=== PATIENT | female | born 1990 | race Hispanic/Latino ===

== ENCOUNTER 2016-11-05 10:46 | Inpatient (IN) | payer OTHER ==
[~2016-11-05 10:46] MED LIST: ATIVAN ONE
[2016-11-05] MEDS ORDERED: KEPPRA 1,000 MG/NS 0.75% 100ML 1,000 MG/100 ML BAG IV ONE (10:48)
[2016-11-05] MEDS ORDERED: NACL 0.9% 1000 ML 1,000 ML IV ONE (10:48)
[2016-11-05] MEDS ORDERED: ATIVAN IV ONE (10:48)
[2016-11-05] MEDS ORDERED: BENADRYL IV ONE (10:48)
--- NOTE | 2016-11-05 10:56 | Emergency Department Report ---
HPI - General Time Seen by Provider: 11/05/16 10:47 - HPI HPI: Room 20 The patient is a 26-year-old female presenting with a chief complaint of seizure. Patient reportedly has had seizures since July 2016 but has refused to go to the hospital for evaluation. The patient's mother states she had 4 seizures this morning. The patient was brought the hospital for seizure and had another generalized tonic-clonic seizure in the ED the patient is currently postictal. The mother states the patient complains of dizziness at times Location: Central Nervous system Duration: [see above] Quality: Generalized Tonic-clonic Severity: Severe Modifying factors: [see above] Context: [see above] Mode of transportation: [not driving] ED Past Medical Hx - Surgical History Past Surgical History?: No - Family History Family history: no significant - Social History Smoking Status: Former Smoker (none 2 years) Substance Use Type: Alcohol (occasionally), Marijuana - Medications Home Medications: Home Medications Medication Instructions Recorded Confirmed Last Taken Type No Known Home Medications [No 11/05/16 11/05/16 Unknown History Reported Home Medications] ED Review of Systems ROS: Stated complaint: SEIZURE Other details as noted in HPI Comment: Unobtainable due to pts medical conditions Physical Exam - Physical Exam Physical Exam: GENERAL: The patient is well-developed well-nourished female who is currently postictal. [] HEENT: Normocephalic. Atraumatic. Patient has moist mucous membranes. NECK: Supple. Trachea midline CHEST/LUNGS: Snoring respirations HEART/CARDIOVASCULAR: Regular. There is tachycardia. There is no gallop rub or murmur. ABDOMEN: Abdomen is soft, nontender. Patient has normal bowel sounds. There is no abdominal distention. SKIN: There is no rash. There is no diaphoresis. NEURO: The patient is post ictal and becoming combative MUSCULOSKELETAL: There is no evidence of acute injury. ED Course - Reevaluation(s) Reevaluation #1: 11/05/16 13:30 Patient resting comfortably still postictal. Heart rate normalized. Will admit ED Medical Decision Making - Lab Data Result diagrams: 11/05/16 10:59 11/05/16 10:59 Laboratory Tests 11/05/16 11/05/16 11/05/16 10:59 10:59 10:59 WBC 28.0 H RBC 4.41 Hgb 13.2 Hct 42.4 MCV 96 MCH 30 MCHC 31 RDW 14.4 Plt Count 247 Add Manual Diff Complete Total Counted 100 Seg Neuts % (Manual) 74.0 H Band Neutrophils % 0 Lymphocytes % (Manual) 17.0 Reactive Lymphs % (Man) 0 Monocytes % (Manual) 9.0 H Eosinophils % (Manual) 0 Basophils % (Manual) 0 Metamyelocytes % 0 Myelocytes % 0 Promyelocytes % 0 Blast Cells % 0 Nucleated RBC % Not Reportable Seg Neutrophils # Man 20.7 H Band Neutrophils # 0.0 Lymphocytes # (Manual) 4.8 Abs React Lymphs (Man) 0.0 Monocytes # (Manual) 2.5 H Eosinophils # (Manual) 0.0 Basophils # (Manual) 0.0 Metamyelocytes # 0.0 Myelocytes # 0.0 Promyelocytes # 0.0 Blast Cells # 0.0 WBC Morphology Not Reportable Hypersegmented Neuts Not Reportable Hyposegmented Neuts Not Reportable Hypogranular Neuts Not Reportable Smudge Cells Not Reportable Toxic Granulation Not Reportable Toxic Vacuolation Not Reportable Dohle Bodies Not Reportable Pelger-Huet Anomaly Not Reportable Dewayne Rods Not Reportable Platelet Estimate Appears normal Clumped Platelets Not Reportable Plt Clumps, EDTA Not Reportable Large Platelets Not Reportable Giant Platelets Not Reportable Platelet Satelliting Not Reportable Plt Morphology Comment Not Reportable RBC Morphology Not Reportable Dimorphic RBCs Not Reportable Polychromasia Few Hypochromasia Not Reportable Poikilocytosis Not Reportable Anisocytosis Not Reportable Microcytosis Not Reportable Macrocytosis Not Reportable Spherocytes Not Reportable Pappenheimer Bodies Not Reportable Sickle Cells Not Reportable Target Cells Not Reportable Tear Drop Cells Not Reportable Ovalocytes Not Reportable Stomatocytes Few Helmet Cells Not Reportable [place] Bodies Not Reportable [place] Rings Not Reportable Marlo Cells Not Reportable Bite Cells Not Reportable Crenated Cell Not Reportable Elliptocytes Not Reportable Acanthocytes (Spur) Not Reportable Rouleaux Not Reportable Hemoglobin C Crystals Not Reportable Schistocytes Not Reportable Malaria parasites Not Reportable John Bodies Not Reportable Hem Pathologist Commnt No PT 15.1 H INR 1.20 H APTT 25.6 Sodium 143 Potassium 4.1 Chloride 104.4 Carbon Dioxide 12 L Anion Gap 31 BUN 11 Creatinine 1.0 Estimated GFR > 60 BUN/Creatinine Ratio 11.00 Glucose 145 H Calcium 9.3 Magnesium Total Bilirubin < 0.20 AST 20 ALT 9 Alkaline Phosphatase 77 Total Creatine Kinase CK-MB (CK-2) CK-MB (CK-2) Rel Index Troponin T Total Protein 7.1 Albumin 4.8 Albumin/Globulin Ratio 2.1 TSH Free T4 Urine Color Urine Turbidity Urine pH Ur Specific [place] Urine Protein Urine Glucose (UA) Urine Ketones Urine Blood Urine Nitrite Urine Bilirubin Urine Urobilinogen Ur Leukocyte Esterase Urine WBC (Auto) Urine RBC (Auto) U Epithel Cells (Auto) Urine WBC Clumps Amorphous Crystals Urine Mucus Urine Yeast (Budding) Urine HCG, Qual Urine Opiates Screen Urine Methadone Screen Ur Barbiturates Screen Ur Phencyclidine Scrn Ur Amphetamines Screen U Benzodiazepines Scrn Urine Cocaine Screen U Marijuana (THC) Screen 11/05/16 11/05/16 11/05/16 10:59 10:59 11:05 WBC RBC Hgb Hct MCV MCH MCHC RDW Plt Count Add Manual Diff Total Counted Seg Neuts % (Manual) Band Neutrophils % Lymphocytes % (Manual) Reactive Lymphs % (Man) Monocytes % (Manual) Eosinophils % (Manual) Basophils % (Manual) Metamyelocytes % Myelocytes % Promyelocytes % Blast Cells % Nucleated RBC % Seg Neutrophils # Man Band Neutrophils # Lymphocytes # (Manual) Abs React Lymphs (Man) Monocytes # (Manual) Eosinophils # (Manual) Basophils # (Manual) Metamyelocytes # Myelocytes # Promyelocytes # Blast Cells # WBC Morphology Hypersegmented Neuts Hyposegmented Neuts Hypogranular Neuts Smudge Cells Toxic Granulation Toxic Vacuolation Dohle Bodies Pelger-Huet Anomaly Dewayne Rods Platelet Estimate Clumped Platelets Plt Clumps, EDTA Large Platelets Giant Platelets Platelet Satelliting Plt Morphology Comment RBC Morphology Dimorphic RBCs Polychromasia Hypochromasia Poikilocytosis Anisocytosis Microcytosis Macrocytosis Spherocytes Pappenheimer Bodies Sickle Cells Target Cells Tear Drop Cells Ovalocytes Stomatocytes Helmet Cells [place] Bodies [place] Rings Veyo Cells Bite Cells Crenated Cell Elliptocytes Acanthocytes (Spur) Rouleaux Hemoglobin C Crystals Schistocytes Malaria parasites John Bodies Hem Pathologist Commnt PT INR APTT Sodium Potassium Chloride Carbon Dioxide Anion Gap BUN Creatinine Estimated GFR BUN/Creatinine Ratio Glucose Calcium Magnesium 2.40 H Total Bilirubin AST ALT Alkaline Phosphatase Total Creatine Kinase 363 H CK-MB (CK-2) 10.2 H CK-MB (CK-2) Rel Index 2.8 Troponin T < 0.010 Total Protein Albumin Albumin/Globulin Ratio TSH 1.490 Free T4 1.06 Urine Color Straw Urine Turbidity Turbid Urine pH 5.0 Ur Specific [place] 1.013 Urine Protein 30 mg/dl Urine Glucose (UA) 50 Urine Ketones Neg Urine Blood Neg Urine Nitrite Neg Urine Bilirubin Neg Urine Urobilinogen < 2.0 Ur Leukocyte Esterase Neg Urine WBC (Auto) 10.0 H Urine RBC (Auto) 5.0 U Epithel Cells (Auto) 1.0 Urine WBC Clumps Not Reportable Amorphous Crystals 2+ Urine Mucus Few Urine Yeast (Budding) Not Reportable Urine HCG, Qual Negative Urine Opiates Screen Urine Methadone Screen Ur Barbiturates Screen Ur Phencyclidine Scrn Ur Amphetamines Screen U Benzodiazepines Scrn Urine Cocaine Screen U Marijuana (THC) Screen 11/05/16 11:05 WBC RBC Hgb Hct MCV MCH MCHC RDW Plt Count Add Manual Diff Total Counted Seg Neuts % (Manual) Band Neutrophils % Lymphocytes % (Manual) Reactive Lymphs % (Man) Monocytes % (Manual) Eosinophils % (Manual) Basophils % (Manual) Metamyelocytes % Myelocytes % Promyelocytes % Blast Cells % Nucleated RBC % Seg Neutrophils # Man Band Neutrophils # Lymphocytes # (Manual) Abs React Lymphs (Man) Monocytes # (Manual) Eosinophils # (Manual) Basophils # (Manual) Metamyelocytes # Myelocytes # Promyelocytes # Blast Cells # WBC Morphology Hypersegmented Neuts Hyposegmented Neuts Hypogranular Neuts Smudge Cells Toxic Granulation Toxic Vacuolation Dohle Bodies Pelger-Huet Anomaly Dewayne Rods Platelet Estimate Clumped Platelets Plt Clumps, EDTA Large Platelets Giant Platelets Platelet Satelliting Plt Morphology Comment RBC Morphology Dimorphic RBCs Polychromasia Hypochromasia Poikilocytosis Anisocytosis Microcytosis Macrocytosis Spherocytes Pappenheimer Bodies Sickle Cells Target Cells Tear Drop Cells Ovalocytes Stomatocytes Helmet Cells [place] Bodies [place] Rings Marlo Cells Bite Cells Crenated Cell Elliptocytes Acanthocytes (Spur) Rouleaux Hemoglobin C Crystals Schistocytes Malaria parasites John Bodies Hem Pathologist Commnt PT INR APTT Sodium Potassium Chloride Carbon Dioxide Anion Gap BUN Creatinine Estimated GFR BUN/Creatinine Ratio Glucose Calcium Magnesium Total Bilirubin AST ALT Alkaline Phosphatase Total Creatine Kinase CK-MB (CK-2) CK-MB (CK-2) Rel Index Troponin T Total Protein Albumin Albumin/Globulin Ratio TSH Free T4 Urine Color Urine Turbidity Urine pH Ur Specific [place] Urine Protein Urine Glucose (UA) Urine Ketones Urine Blood Urine Nitrite Urine Bilirubin Urine Urobilinogen Ur Leukocyte Esterase Urine WBC (Auto) Urine RBC (Auto) U Epithel Cells (Auto) Urine WBC Clumps Amorphous Crystals Urine Mucus Urine Yeast (Budding) Urine HCG, Qual Urine Opiates Screen Presumptive negative Urine Methadone Screen Presumptive negative Ur Barbiturates Screen Presumptive positive Ur Phencyclidine Scrn Presumptive negative Ur Amphetamines Screen Presumptive negative U Benzodiazepines Scrn Presumptive negative Urine Cocaine Screen Presumptive negative U Marijuana (THC) Screen Presumptive positive - EKG Data -: EKG Interpreted by Oh EKG shows normal: sinus rhythm Rate: tachycardia (126 bpm) - EKG Data When compared to previous EKG there are: previous EKG unavailable Interpretation: other (no ischemic changes seen) - Radiology Data Radiology results: report reviewed (CT head), image reviewed (CT head) CT head (read by radiologist)-no acute intracranial CT abnormality with mild increased sinus disease. - Differential Diagnosis epilepsy, ICH, electrolyte imbalance, substance abuse Critical care attestation.: If time is entered above; I have spent that time in minutes in the direct care of this critically ill patient, excluding procedure time. ED Disposition Clinical Impression: Seizures, Leukocytosis Disposition: OP ADMITTED IP TO THIS HOSP Is pt being admited?: Yes Does the pt Need Aspirin: Yes Condition: Fair Time of Disposition: 13:29 (hospitalist paged)
[2016-11-05 11:11] LABS: Hematocrit 42.4 % (30.3-42.9); Hemoglobin 13.2 gm/dl (10.1-14.3); Mean Corpuscular HGB Conc 31 % (30-34); Mean Corpuscular Hemoglobin 30 pg (28-32); Mean Corpuscular Volume 96 fl (79-97); Platelet Count 247 K/mm3 (140-440); Red Blood Count 4.41 M/mm3 (3.65-5.03); Red Cell Distribution Width 14.4 % (13.2-15.2)
[2016-11-05 11:20] LABS: INR 1.2 (0.87-1.13)
[2016-11-05 11:21] LABS: Partial Thromboplastin Time 25.6 Sec. (24.2-36.6)
[2016-11-05 11:35] LABS: Alanine Aminotransferase 9 units/L (7-56); Albumin 4.8 g/dL (3.9-5); Albumin/Globulin Ratio 2.1 %; Alkaline Phosphatase 77 units/L (35-129); Anion Gap 31 mmol/L; Bilirubin,Total < 0.20 mg/dL (0.1-1.2); Blood Urea Nitrogen 11 mg/dL (7-17); Calcium 9.3 mg/dL (8.4-10.2); Carbon Dioxide 12 mmol/L (22-30); Chloride 104.4 mmol/L (98-107); Glucose 145 mg/dL (65-100); Potassium 4.1 mmol/L (3.6-5.0); Sodium 143 mmol/L (137-145); Total Protein 7.1 g/dL (6.3-8.2)
[2016-11-05 11:53] LABS: Urine Drugs of Abuse Note Disclamer
[2016-11-05 12:00] LABS: Basophils % (Manual) 0 % (0.0-1.8); Blastocytes % (Manual) 0 %; Diff Status Complete; Eosinophils % (Manual) 0 % (0.0-4.3); Polychromasia Few; Stomatocytes Few
[2016-11-05 12:18] LABS: Bilirubin,Urine NEG (Negative); Blood,Urine NEG (Negative); Ketones,Urine NEG (Negative); Leukocyte Esterase,Urine NEG (Negative); Mucus,Urine FEW /HPF; Nitrite,Urine NEG (Negative); Urobilinogen,Urine < 2.0 mg/dL (<2.0)
[2016-11-05] MEDS ORDERED: ATIVAN IV PRN (12:28)
[2016-11-05] MEDS ORDERED: ZOFRAN ONE (12:35)
[2016-11-05 13:06] LABS: Creatine Kinase MB 10.2 ng/mL (0.0-4.0)
[2016-11-05 13:07] LABS: Creatine Kinase 363 units/L (30-135)
--- NOTE | 2016-11-05 13:11 | Cat Scan Report ---
CT HEAD WITHOUT CONTRAST INDICATION: Seizure. COMPARISON: 07/17/2011. FINDINGS: Noncontrast head CT demonstrates normal ventricles and sulci without acute or recent infarct, hemorrhage, mass effect or midline shift. No abnormal extra-axial fluid collections. Posterior fossa structures and basilar cisterns appear within normal limits. Symmetric eye globes. Mild to moderate right sphenoid sinusitis is new as also mild bilateral ethmoid sinusitis. Mild density in the left sphenoid sinus again noted, though now present more anteriorly. Additional slight left sphenoid sinus mucosal thickening may also now be seen. Frontal sinuses again somewhat hypoplastic. Clear remainder imaged paranasal sinuses and mastoid air cells. Intact calvarium. Normal overlying scalp soft tissues. Stable oral piercing ornament. CONCLUSION: No acute intracranial CT abnormality with mild increased sinus disease noted, as described. Thank you for the opportunity to participate in this patient's care.
--- NOTE | 2016-11-05 13:46 | Admit Criteria Form ---
Admission Criteria Documentation: SEIZURE Clinical Indications for Admission to Inpatient Care (Place 'X' for any and all applicable criteria): Admission is indicated for seizure and ANY ONE of the following(1)(2)(3)(4)(5): [x]I. Inpatient admission required rather than observation care (Also use Seizure: Observation Care Criteria as appropriate) because of ANY ONE of the following: [ ]a) Altered mental status that is severe or persistent [ ]b) New focal neurologic deficit that is severe or persistent [ ]c) Metabolic disorder (eg, hypoglycemia, hyponatremia) that is severe or persistent [x]d) Recurrent seizure [ ]e) Outpatient antiseizure regimen cannot be established (eg , patient cannot tolerate medication, initiation requires inpatient care) [ ]f) Need for ongoing intravenous infusion of antiseizure medication [ ]g) Cardiac arrhythmias of immediate concern [ ]h) Cerebral bleeding, hydrocephalus, or vasospasm monitoring (14) [ ]i) Increased intracranial pressure or cerebral edema monitoring (15) [ ]j) Other treatment or monitoring requiring inpatient admission [ ]II. Status epilepticus [A] or repetitive seizures not controlled with emergent treatment (6)(8) [ ]III. Brain disorder (eg, tumor, edema, and hydrocephalus) that requiring monitoring or intervention available only at inpatient level of care. [ ]IV. Brain insult (eg, severe trauma, stroke, drug toxicity, or withdrawal) that requires monitoring or intervention available only at inpatient level of care (10)(11) Extended stay beyond goal length of stay may be needed for (22) [ ]a) Complications of status epilepticus [ ]b) Refractory status epilepticus [ ]c) Etiology-specific therapy for conditions such as [employer] CONTROL SPECIALIST infection, head injury,eclampsia, severe metabolic abnormalities, and brain tumor [ ]d) Residual neurologic damage, [ ]e) Initiation of significant change to anticonvulsant treatment [ ]f) Older patients (65 years or older) [ ]g) Patient requiring intubation (eg, to protect airway) The original [employer] includes the [facility] content created by [employer] has been revised. The portions of the content which have been revised are identified through the use of italic text or in bold, and [employer] includes the [facility] [employer] has neither reviewed nor approved the modified material. All other unmodified content is copyright [facility] [employer]. Please see references footnoted in the original [facility] edition 2016 Admission Criteria Met: Yes
[2016-11-05] MEDS ORDERED: DULCOLAX PR PRN (15:03)
[2016-11-05] MEDS ORDERED: MILK OF MAGNESIA PO PRN (15:03)
[2016-11-05] MEDS ORDERED: ZOFRAN IV PRN (15:03)
[2016-11-05] MEDS ORDERED: TYLENOL PO PRN (15:03)
[2016-11-05] MEDS ORDERED: MORPHINE IV PRN (15:03)
[2016-11-05] MEDS: D5NS 1,000 ML IV SCH (16:53)
[2016-11-05] MEDS: PEPCID PO SCH ×2 (18:14→22:38)
[2016-11-05] MEDS: KEPPRA PO SCH (22:37)
--- NOTE | 2016-11-06 00:03 | Event Note ---
Date: 11/05/16 See H/p in reports Seizure Disorder
[2016-11-06] MEDS: D5NS 1,000 ML IV SCH (04:24)
[2016-11-06 04:58] LABS: Basophils % (Auto) 0.2 % (0.0-1.8); Hematocrit 37.7 % (30.3-42.9); Hemoglobin 12.4 gm/dl (10.1-14.3); Mean Corpuscular HGB Conc 33 % (30-34); Mean Corpuscular Hemoglobin 30 pg (28-32); Mean Corpuscular Volume 92 fl (79-97); Platelet Count 158 K/mm3 (140-440); Red Blood Count 4.12 M/mm3 (3.65-5.03); Red Cell Distribution Width 14.7 % (13.2-15.2); White Blood Count 12.9 K/mm3 (4.5-11.0)
[2016-11-06 05:09] LABS: Blood Urea Nitrogen 6 mg/dL (7-17); Calcium 8.5 mg/dL (8.4-10.2); Carbon Dioxide 19 mmol/L (22-30); Chloride 107.8 mmol/L (98-107); Glucose 98 mg/dL (65-100); Potassium 3.9 mmol/L (3.6-5.0); Sodium 140 mmol/L (137-145)
[2016-11-06 05:27] LABS: Anion Gap 17 mmol/L
--- NOTE | 2016-11-06 09:49 | History and Physical Report ---
CHIEF COMPLAINT: Seizures since 3 months. HISTORY OF PRESENT ILLNESS: A 26-year-old female who has been having seizures since July 2016 but refused to go to a physician for evaluation. As per mother, the patient had four seizures this morning. Generalized tonic-clonic seizures and the patient was postictal in the ER. The patient is lethargic. Not able to answer any questions. She had four seizures from morning. All are tonic-clonic generalized in description as per the mother. PAST MEDICAL HISTORY: Significant for seizure disorder for the last 3 months. FAMILY HISTORY: No significant family history. PAST SURGICAL HISTORY: None. SOCIAL HISTORY: Former smoker stopped about 3 years ago. Alcohol occasionally. Marijuana occasionally. FAMILY HISTORY: No significant family history. CURRENT MEDICATIONS: None. REVIEW OF SYSTEMS: Could not be done because of the patient's postictal state from the mom. The patient did not have any weight loss or weight gain. No fever. No chills. HEENT: No sore throat. No postnasal drip. CARDIOVASCULAR AND RESPIRATORY: No shortness of breath, no chest pain, no palpitations. GASTROINTESTINAL: No nausea, no vomiting, and no diarrhea. GENITOURINARY: No dysuria. DENTAL RECEPTIONIST: Seizures generalized for 4 times since morning. SKIN: No rashes. MUSCULOSKELETAL: No muscle pain etc. PHYSICAL EXAMINATION: GENERAL: Young female, lethargic, postictal, decreased responsiveness. VITAL SIGNS: Blood pressure 101/60, temperature is 99.2, pulse is 84, respirations 21, and sats are 95%. HEENT: Unremarkable. Pupils are equal and reactive. NECK: Supple, no lymphadenopathy, no thyromegaly. LUNGS: Clear to auscultation and percussion. Good air entry. CARDIOVASCULAR: S1, S2 heard. No gallop, no murmur, and no rub. Apical impulse in left fifth intercostal space and midclavicular line. ABDOMEN: Soft and benign. No hepatosplenomegaly. No guarding, no rigidity. Hernial orifices are normal. EXTREMITIES: Good pedal pulses. No pedal edema. CENTRAL NERVOUS SYSTEM: Altered sensorium, lethargic, responds to deep painful stimuli, but moves all four extremities. SKIN: Normal. LABORATORY DATA: Significant for white count of 28,000, H and H is 13.2 and 42.4, platelet count is 247,000. Urine shows 10 white cells. Drug screen is positive for marijuana and barbiturates. Electrolytes are normal. BUN and creatinine 11 and 1.0. CK is 363. CK-MB is 10.2. CT of the head no acute intracranial. EKG shows no ischemic changes. Sinus tachycardia 126. ASSESSMENT AND PLAN: 1. New onset seizure disorder. The patient started on IV Keppra to be transitioned to p.o. Keppra. Neurology consulted. IV fluids for the time being. 2. Urinary tract infection. Rocephin 2 grams IV q.24. 3. Leukocytosis, probably stress induced and secondary to seizures. We will check the white count again on 11/06/2016. 4. Deep vein thrombosis prophylaxis, Lovenox 40 mg subcutaneously daily. JOB# [id number] JONH/NTS
[2016-11-06] MEDS: ROCEPHIN/NS 1 GM/50 ML 1 GM/50 ML BAG IV SCH (10:12)
[2016-11-06] MEDS: PEPCID PO SCH ×2 (10:13→22:38)
[2016-11-06] MEDS: KEPPRA PO SCH ×2 (10:13→22:37)
--- NOTE | 2016-11-06 13:31 | History and Physical Report ---
History of Present Illness Date of examination: 11/06/16 Date of admission: 11/05/16 13:38 Chief complaint: seizure. History of present illness: 26 yeas old ambidextrous handed female with a past medical history of seizure, admitted for seizures. She has first seizure when she was 20 years old. She didn't take any seizure medicine. She has had seizures in July and August this year. She has had cluster seizures before admission. Her mother was with her at home. She has aura, felt jennifer Vu, then diaphoresis, then seizure. She has eyes rolled back, bitten tongue, incontinence. Then she was posictal for hours. Totally. she has 4 times seizures, all are pretty much same. Past History Past Medical History: other (Knees problems.) Past Surgical History: No surgical history Social history: no significant social history Medications and Allergies Allergies Allergy/AdvReac Type Severity Reaction Status Date / Time No Known Allergies Allergy Unverified 11/05/16 10:54 Home Medications Medication Instructions Recorded Confirmed Last Taken Type No Known Home Medications [No 11/05/16 11/05/16 Unknown History Reported Home Medications] Active Meds: Active Medications Acetaminophen (Tylenol) 650 mg PO Q4H PRN PRN Reason: Pain MILD(1-3)/Fever >100.5/ROWE Bisacodyl (Dulcolax) 10 mg OH QDAY PRN PRN Reason: Constipation unrelieved by MOM Famotidine (Pepcid) 20 mg PO BID [facility] Last Admin: 11/06/16 10:13 Dose: 20 mg Dextrose/Sodium Chloride (D5ns) 1,000 mls @ 100 mls/hr IV DIRECT [facility] Last Admin: 11/06/16 04:24 Dose: 100 mls/hr Ceftriaxone Sodium (Rocephin/Ns 1 Gm/50 Ml) 1 gm in 50 mls @ 100 mls/hr IV Q24HR KUMAR PRN Reason: Protocol Last Admin: 11/06/16 10:12 Dose: 100 mls/hr Levetiracetam (Keppra) 750 mg PO BID [facility] Last Admin: 11/06/16 10:13 Dose: 750 mg Lidocaine HCl (Lidocaine Viscous 2%) 15 ml PO Q8HR PRN PRN Reason: Mouth Pain Lorazepam (Ativan) 2 mg IV ONCE PRN PRN Reason: Agitation Magnesium Hydroxide (Milk Of Magnesia) 30 ml PO Q4H PRN PRN Reason: Constipation Morphine Sulfate (Morphine) 2 mg IV Q4H PRN PRN Reason: Pain, Moderate (4-6) Ondansetron HCl (Zofran) 4 mg IV Q8H PRN PRN Reason: N/V unrelieved by Reglan Review of Systems All systems: negative (All negative but tongue bitten both side.) Physical Examination - Vital Signs Vital Signs: Vital Signs Pulse Resp Pulse Ox 147 H 23 100 11/05/16 10:40 11/05/16 10:40 11/05/16 10:40 - Constitutional General appearance: comfortable - EENT EENT: Present: PERRL, TM abnormal - Respiratory Respiratory: Present: lungs clear, normal breath sounds, no respiratory distress - Cardiovascular Cardiovascular: Present: regular rate, normal S1, normal S2 Extremities: Present: no peripheral edema bilatateraly, no clubbing, cyanosis, no inflammation - Gastrointestinal Gastrointestinal: Present: soft, non-tender - Integumentary Integumentary: Present: normal - Neurologic Cranial nerve examination: PERRL, EOMI Speech examination: intact Sensorimotor examination: intact Detailed motor examination: grossly full strength in Motor examination - left side: 5/5: biceps, triceps, wrist flexion, wrist extension, ammunition assembly ii laborer, hip flexors, knee extensors, dorsiflexion, toe extension (EHL) , plantarflexion Detailed sensory examination: intact Reflexes: 2+: ankle, bicep, knee, tricep Cerebellar examination: other (Motional.) Results - Laboratory Findings CBC and BMP: 11/06/16 04:28 11/06/16 04:28 Abnormal Lab Findings: Abnormal Labs 11/06/16 11/06/16 04:28 04:28 WBC 12.9 H [place] # 0.9 H Seg Neutrophils % 75.9 H Seg Neutrophils # 9.8 H Chloride 107.8 H Carbon Dioxide 19 L D BUN 6 L Assessment and Plan 1. Seizures. Probably focal with conscious impairment and secondary generalized. 2. Leukocytosis. Suggestions. 1. Brain MRI with and without contrast. EEG. 2. Continue Keppra. Ativan PRN. 3. Don't drive a vehicle or operate heavy machinery for 6 months. Always seizure precaution. 4. Folic acid 2 mg daily. If , 2 mg bid. 5. Infection work up and continue antibiotics. 6. Plan discussed with her and her parents. 7. If D/C, F/U with neurology in 6-8 weeks.
[2016-11-06] MEDS ORDERED: LIDOCAINE VISCOUS 2% PO PRN (14:00)
--- NOTE | 2016-11-06 15:03 | Electroencephalogram Report ---
Electroencephalogram EEG Date of exam: 11/06/16 History: 26 years old, female, seizures, total 4 times and last one was cluster. Impression: Epilepsy Description: The waking background shows an appropriate organization with well-defined anterior posterior voltage and frequency gradients. Posteriorly, there is a well -developed alpha rhythm of 10 Hz which is symmetrical and bilaterally reactive. Anteriorly, there is a pattern of lower voltage and slightly irregular theta and beta range frequencies. During drowsiness, there is attenuation of the background rhythms. A few times, left temporal regions, sharp waves and focal slowing were seen. There was no sustained seizure noted. Interpretation: Abnormal EEG basis on focal slowing and sharp waves, which can see in focal cerebral dysfunction or focal seizures. Clinical correlation needed. If clinically indicated, may consider repeat EEG study even with video monitor or sleep deprived. I suggest her to continue seizure medicine and follow up with neurologist.
--- NOTE | 2016-11-06 18:59 | Magnetic Resonance Report ---
FINAL REPORT EXAM: MR BRAIN WO/W CON HISTORY: seizure TECHNIQUE: Multi sequence, Multiplanar MR imaging is acquired prior and subsequent to administration of gadolinium intravenous contrast. PRIORS: None. FINDINGS: There is no restricted diffusion, abnormal susceptibility or abnormal enhancement. The ventricles and cisterns and sulci are within normal limits. No midline shift or herniation. No intraparenchymal mass , mass effect or hemorrhage. Intracranial vasculature is within normal limits. [place] and white matter signal characteristics are also within normal limits. No volume loss or abnormal signal involving the parahippocampal gyri. Normal spherical shape of the globes. No abnormal signal within the paranasal sinuses or mastoid aircells. IMPRESSION: Normal MRI Brain.
--- NOTE | 2016-11-06 20:51 | Progress Note ---
Assessment and Plan Assessment and plan: --New onset seizures Continue seizure precautions, antiseizure medications, supportive care neurology evaluation noted and appreciated Follow neuro workup --Leukocytosis, rule out sepsis, probably urinary tract infection present on admission, Blood and urine cultures, empiric antibiotics --DVT prophylaxis with Lovenox Closely monitor the patient had just the management as needed, plan of care discussed with the patient, have patient's as well as the nurse Possible discharge in 1-2 days if stable History Interval history: Patient seen and evaluated medical records reviewed No new events reported by the nursing staff Patient was admitted with seizure episodes, no new seizures since admission Mild leukocytosis Hospitalist Physical - Constitutional Vitals: Temp Pulse Resp BP Pulse Ox 98.5 F 85 18 117/73 100 11/06/16 15:46 11/06/16 15:46 11/06/16 15:46 11/06/16 15:46 11/06/16 08:00 General appearance: Present: no acute distress, well-nourished - EENT Eyes: Present: PERRL, EOM intact - Neck Neck: Present: supple, normal ROM - Respiratory Respiratory effort: normal Respiratory: bilateral: diminished, negative: rales, rhonchi, wheezing - Cardiovascular Rhythm: regular Heart Sounds: Present: S1 & S2 - Extremities Extremities: no ischemia, pulses intact, pulses symmetrical Peripheral Pulses: within normal limits - Abdominal General gastrointestinal: soft, non-tender, non-distended, normal bowel sounds - Integumentary Integumentary: Present: clear, warm - Psychiatric Psychiatric: appropriate mood/affect, cooperative - Neurologic Neurologic: CNII-XII intact, moves all extremities Results - Labs CBC & Chem 7: 11/06/16 04:28 11/06/16 04:28 Labs: Laboratory Last Values WBC 12.9 K/mm3 (4.5-11.0) H 11/06/16 04:28 RBC 4.12 M/mm3 (3.65-5.03) 11/06/16 04:28 Hgb 12.4 gm/dl (10.1-14.3) 11/06/16 04:28 Hct 37.7 % (30.3-42.9) 11/06/16 04:28 MCV 92 fl (79-97) D 11/06/16 04:28 MCH 30 pg (28-32) 11/06/16 04:28 MCHC 33 % (30-34) 11/06/16 04:28 RDW 14.7 % (13.2-15.2) 11/06/16 04:28 Plt Count 158 K/mm3 (140-440) 11/06/16 04:28 Lymph % (Auto) 16.8 % (13.4-35.0) 11/06/16 04:28 [place] % (Auto) 7.1 % (0.0-7.3) 11/06/16 04:28 Eos % (Auto) 0.0 % (0.0-4.3) 11/06/16 04:28 Baso % (Auto) 0.2 % (0.0-1.8) 11/06/16 04:28 Lymph # 2.2 K/mm3 (1.2-5.4) 11/06/16 04:28 [place] # 0.9 K/mm3 (0.0-0.8) H 11/06/16 04:28 Eos # 0.0 K/mm3 (0.0-0.4) 11/06/16 04:28 Baso # 0.0 K/mm3 (0.0-0.1) 11/06/16 04:28 Add Manual Diff Complete 11/05/16 10:59 Total Counted 100 11/05/16 10:59 Seg Neutrophils % 75.9 % (40.0-70.0) H 11/06/16 04:28 Seg Neuts % (Manual) 74.0 % (40.0-70.0) H 11/05/16 10:59 Band Neutrophils % 0 % 11/05/16 10:59 Lymphocytes % (Manual) 17.0 % (13.4-35.0) 11/05/16 10:59 Reactive Lymphs % (Man) 0 % 11/05/16 10:59 Monocytes % (Manual) 9.0 % (0.0-7.3) H 11/05/16 10:59 Eosinophils % (Manual) 0 % (0.0-4.3) 11/05/16 10:59 Basophils % (Manual) 0 % (0.0-1.8) 11/05/16 10:59 Metamyelocytes % 0 % 11/05/16 10:59 Myelocytes % 0 % 11/05/16 10:59 Promyelocytes % 0 % 11/05/16 10:59 Blast Cells % 0 % 11/05/16 10:59 Nucleated RBC % Not Reportable 11/05/16 10:59 Seg Neutrophils # 9.8 K/mm3 (1.8-7.7) H 11/06/16 04:28 Seg Neutrophils # Man 20.7 K/mm3 (1.8-7.7) H 11/05/16 10:59 Band Neutrophils # 0.0 K/mm3 11/05/16 10:59 Lymphocytes # (Manual) 4.8 K/mm3 (1.2-5.4) 11/05/16 10:59 Abs React Lymphs (Man) 0.0 K/mm3 11/05/16 10:59 Monocytes # (Manual) 2.5 K/mm3 (0.0-0.8) H 11/05/16 10:59 Eosinophils # (Manual) 0.0 K/mm3 (0.0-0.4) 11/05/16 10:59 Basophils # (Manual) 0.0 K/mm3 (0.0-0.1) 11/05/16 10:59 Metamyelocytes # 0.0 K/mm3 11/05/16 10:59 Myelocytes # 0.0 K/mm3 11/05/16 10:59 Promyelocytes # 0.0 K/mm3 11/05/16 10:59 Blast Cells # 0.0 K/mm3 11/05/16 10:59 WBC Morphology Not Reportable 11/05/16 10:59 Hypersegmented Neuts Not Reportable 11/05/16 10:59 Hyposegmented Neuts Not Reportable 11/05/16 10:59 Hypogranular Neuts Not Reportable 11/05/16 10:59 Smudge Cells Not Reportable 11/05/16 10:59 Toxic Granulation Not Reportable 11/05/16 10:59 Toxic Vacuolation Not Reportable 11/05/16 10:59 Dohle Bodies Not Reportable 11/05/16 10:59 Pelger-Huet Anomaly Not Reportable 11/05/16 10:59 Dewayne Rods Not Reportable 11/05/16 10:59 Platelet Estimate Appears normal 11/05/16 10:59 Clumped Platelets Not Reportable 11/05/16 10:59 Plt Clumps, EDTA Not Reportable 11/05/16 10:59 Large Platelets Not Reportable 11/05/16 10:59 Giant Platelets Not Reportable 11/05/16 10:59 Platelet Satelliting Not Reportable 11/05/16 10:59 Plt Morphology Comment Not Reportable 11/05/16 10:59 RBC Morphology Not Reportable 11/05/16 10:59 Dimorphic RBCs Not Reportable 11/05/16 10:59 Polychromasia Few 11/05/16 10:59 Hypochromasia Not Reportable 11/05/16 10:59 Poikilocytosis Not Reportable 11/05/16 10:59 Anisocytosis Not Reportable 11/05/16 10:59 Microcytosis Not Reportable 11/05/16 10:59 Macrocytosis Not Reportable 11/05/16 10:59 Spherocytes Not Reportable 11/05/16 10:59 Pappenheimer Bodies Not Reportable 11/05/16 10:59 Sickle Cells Not Reportable 11/05/16 10:59 Target Cells Not Reportable 11/05/16 10:59 Tear Drop Cells Not Reportable 11/05/16 10:59 Ovalocytes Not Reportable 11/05/16 10:59 Stomatocytes Few 11/05/16 10:59 Helmet Cells Not Reportable 11/05/16 10:59 [place] Bodies Not Reportable 11/05/16 10:59 [place] Rings Not Reportable 11/05/16 10:59 Marlo Cells Not Reportable 11/05/16 10:59 Bite Cells Not Reportable 11/05/16 10:59 Crenated Cell Not Reportable 11/05/16 10:59 Elliptocytes Not Reportable 11/05/16 10:59 Acanthocytes (Spur) Not Reportable 11/05/16 10:59 Rouleaux Not Reportable 11/05/16 10:59 Hemoglobin C Crystals Not Reportable 11/05/16 10:59 Schistocytes Not Reportable 11/05/16 10:59 Malaria parasites Not Reportable 11/05/16 10:59 John Bodies Not Reportable 11/05/16 10:59 Hem Pathologist Commnt No 11/05/16 10:59 PT 15.1 Sec. (12.2-14.9) H 11/05/16 10:59 INR 1.20 (0.87-1.13) H 11/05/16 10:59 APTT 25.6 Sec. (24.2-36.6) 11/05/16 10:59 Sodium 140 mmol/L (137-145) 11/06/16 04:28 Potassium 3.9 mmol/L (3.6-5.0) 11/06/16 04:28 Chloride 107.8 mmol/L (98-107) H 11/06/16 04:28 Carbon Dioxide 19 mmol/L (22-30) L D 11/06/16 04:28 Anion Gap 17 mmol/L 11/06/16 04:28 BUN 6 mg/dL (7-17) L 11/06/16 04:28 Creatinine 0.8 mg/dL (0.7-1.2) 11/06/16 04:28 Estimated GFR > 60 ml/min 11/06/16 04:28 BUN/Creatinine Ratio 7.50 % 11/06/16 04:28 Glucose 98 mg/dL (65-100) 11/06/16 04:28 Calcium 8.5 mg/dL (8.4-10.2) 11/06/16 04:28 Magnesium 2.40 mg/dL (1.7-2.3) H 11/05/16 10:59 Total Bilirubin < 0.20 mg/dL (0.1-1.2) 11/05/16 10:59 AST 20 units/L (5-40) 11/05/16 10:59 ALT 9 units/L (7-56) 11/05/16 10:59 Alkaline Phosphatase 77 units/L (35-129) 11/05/16 10:59 Total Creatine Kinase 363 units/L (30-135) H 11/05/16 10:59 CK-MB (CK-2) 10.2 ng/mL (0.0-4.0) H 11/05/16 10:59 CK-MB (CK-2) Rel Index 2.8 (0-4) 11/05/16 10:59 Troponin T < 0.010 ng/mL (0.00-0.029) 11/05/16 10:59 Total Protein 7.1 g/dL (6.3-8.2) 11/05/16 10:59 Albumin 4.8 g/dL (3.9-5) 11/05/16 10:59 Albumin/Globulin Ratio 2.1 % 11/05/16 10:59 TSH 1.490 mlU/mL (0.270-4.200) 11/05/16 10:59 Free T4 1.06 ng/dL (0.76-1.46) 11/05/16 10:59 Urine Color Straw (Yellow) 11/05/16 11:05 Urine Turbidity Turbid (Clear) 11/05/16 11:05 Urine pH 5.0 (5.0-7.0) 11/05/16 11:05 Ur Specific [place] 1.013 (1.003-1.030) 11/05/16 11:05 Urine Protein 30 mg/dl mg/dL (Negative) 11/05/16 11:05 Urine Glucose (UA) 50 mg/dL (Negative) 11/05/16 11:05 Urine Ketones Neg mg/dL (Negative) 11/05/16 11:05 Urine Blood Neg (Negative) 11/05/16 11:05 Urine Nitrite Neg (Negative) 11/05/16 11:05 Urine Bilirubin Neg (Negative) 11/05/16 11:05 Urine Urobilinogen < 2.0 mg/dL (<2.0) 11/05/16 11:05 Ur Leukocyte Esterase Neg (Negative) 11/05/16 11:05 Urine WBC (Auto) 10.0 /HPF (0.0-6.0) H 11/05/16 11:05 Urine RBC (Auto) 5.0 /HPF (0.0-6.0) 11/05/16 11:05 U Epithel Cells (Auto) 1.0 /HPF (0-13.0) 11/05/16 11:05 Urine WBC Clumps Not Reportable 11/05/16 11:05 Amorphous Crystals 2+ 11/05/16 11:05 Urine Mucus Few /HPF 11/05/16 11:05 Urine Yeast (Budding) Not Reportable 11/05/16 11:05 Urine HCG, Qual Negative (Negative) 11/05/16 11:05 Urine Opiates Screen Presumptive negative 11/05/16 11:05 Urine Methadone Screen Presumptive negative 11/05/16 11:05 Ur Barbiturates Screen Presumptive positive 11/05/16 11:05 Ur Phencyclidine Scrn Presumptive negative 11/05/16 11:05 Ur Amphetamines Screen Presumptive negative 11/05/16 11:05 U Benzodiazepines Scrn Presumptive negative 11/05/16 11:05 Urine Cocaine Screen Presumptive negative 11/05/16 11:05 U Marijuana (THC) Screen Presumptive positive 11/05/16 11:05 Drugs of Abuse Note Disclamer 11/05/16 11:05
[2016-11-07] MEDS: D5NS 1,000 ML IV SCH (01:51)
[2016-11-07 07:22] LABS: Basophils % (Auto) 0.3 % (0.0-1.8); Eosinophils % (Auto) 0.7 % (0.0-4.3); Hemoglobin 12.1 gm/dl (10.1-14.3); Mean Corpuscular HGB Conc 34 % (30-34); Mean Corpuscular Hemoglobin 31 pg (28-32); Mean Corpuscular Volume 91 fl (79-97); Platelet Count 151 K/mm3 (140-440); Red Blood Count 3.95 M/mm3 (3.65-5.03); Red Cell Distribution Width 14.5 % (13.2-15.2); White Blood Count 6.6 K/mm3 (4.5-11.0)
[2016-11-07 07:29] LABS: Anion Gap 17 mmol/L; BUN/Creatinine Ratio 5.71; Blood Urea Nitrogen 4 mg/dL (7-17); Calcium 8.6 mg/dL (8.4-10.2); Carbon Dioxide 22 mmol/L (22-30); Glucose 97 mg/dL (65-100); Potassium 3.9 mmol/L (3.6-5.0); Sodium 144 mmol/L (137-145)
--- NOTE | 2016-11-07 09:44 | Discharge Summary ---
Providers - Providers Date of Admission: 11/05/16 13:38 Date of discharge: 11/07/16 Attending physician: BRIANA WILLAMS 11/05/16 13:51 Speech Therapy Evaluation and Treat [CONS] Routine Reason For Exam: failed bedside swallow 11/05/16 15:03 Consult to Physician [CONS] Routine Consulting Provider: LAURE ONEIL Reason For Exam: Seizure Place consult to:: Dionicio Notified:: Yes Comment:: consult changed to rounding neurologist Primary care physician: SHOE CLEANER Hospitalization Reason for admission: Seizure Condition: Fair Pertinent studies: CT head without contrast; no acute intracranial abnormality noted mild increased sinus disease MRI of the brain; no acute abnormality noted EEG; abnormal EEG focal slowing and sharp waves which can be seen in focal cerebral dysfunction or focal seizures advised continue seizure medications and follow up with neurologist Hospital course: 26-year-old female patient with significant past medical history of intermittent seizures for the last 3 months not on any medications did not see any physician was admitted through emergency room with seizures 2 generalized tonic-clonic patient was postictal in the emergency room Admitted to the hospital symptomatically managed placed on seizure precautions Evaluated by neurologist, started on antiseizure medications Had neuro workup with CT head without contrast, MRA of the brain, EEG the findings of which are as mentioned above Patient also had leukocytosis, started on empiric antibiotics to rule out possible urinary tract infection Patient did not have any new episodes of seizures since admission Leukocytosis completely resolved Cultures are negative to date Today she is comfortable in bed alert awake oriented 3 not in acute distress vital signs are stable [id number] evaluation physical examination done by me prior to discharge is unremarkable as detailed below Hemodynamically and clinically stable for discharge and does not need any further acute inpatient care at this time Patient also has history of marijuana use counseling done patient strongly advised to quit marijuana verbalized understanding Patient and patient's is at the bedside, advised strongly not to drive motor vehicle or operate heavy machinery for 6 months or until cleared by primary care physician or neurologist And advised to continue seizure precautions, patient and her verbalized understanding Final diagnosis; Seizure disorder new onset Leukocytosis Possible urinary tract infection Recreational drug use Medical none complains Disposition: DISCHARGED TO HOME OR SELFCARE Time spent for discharge: 32 min Core Measure Documentation - Palliative Care Palliative Care/ Comfort Measures: Not Applicable - Core Measures Any of the following diagnoses?: none Exam - Constitutional Vitals: Temp Pulse Resp BP Pulse Ox 97.0 F L 72 18 117/82 98 11/07/16 07:00 11/07/16 07:00 11/07/16 07:00 11/07/16 07:00 11/07/16 00:00 General appearance: Present: no acute distress, well-nourished - EENT Eyes: Present: PERRL, EOM intact - Neck Neck: Present: supple, normal ROM - Respiratory Respiratory effort: normal Respiratory: negative: rales, rhonchi, wheezing - Cardiovascular Rhythm: regular Heart Sounds: Present: S1 & S2 - Extremities Extremities: no ischemia, pulses intact, pulses symmetrical Peripheral Pulses: within normal limits - Abdominal General gastrointestinal: Present: soft, non-tender, non-distended, normal bowel sounds - Integumentary Integumentary: Present: clear, warm - Musculoskeletal Musculoskeletal: strength equal bilaterally - Psychiatric Psychiatric: appropriate mood/affect, cooperative - Neurologic Neurologic: CNII-XII intact, moves all extremities Plan Activity: no driving until cleared by PCP (secondary to seizures), other ( seizure precautions) Special Instructions: other (advised to quit. Marijuana drug use) Additional Instructions: Do not drive or operate heavy machinery until 6 months [or until cleared by primary care physician/neurology]. Advised to follow seizure precautions. Strongly advised to comply with medications and doctors visit. I also discussed the above instructions with the at the bedside. Both of them verbalized understanding Follow up with: PRIMARY CAREMD [Primary Care Provider] - 3-5 Days ARELIS BAÑUELOS MD [Staff Physician] - 7 Days Prescriptions: Folic Acid [Folvite] 1 mg PO QDAY #30 tablet levETIRAcetam [Keppra TAB] 750 mg PO BID #60 tablet Sulfamethoxazole/Trimethoprim [Bactrim DS TAB] 1 each PO BID #10 tablet
[2016-11-07] MEDS ORDERED: FOLVITE PO SCH (10:00)
[2016-11-07] MEDS: ROCEPHIN/NS 1 GM/50 ML 1 GM/50 ML BAG IV SCH (10:58)
[2016-11-07] MEDS: KEPPRA PO SCH (10:59)
[2016-11-07] MEDS: PEPCID PO SCH (10:59)
--- NOTE | 2016-11-07 11:58 | Progress Note ---
Assessment and Plan 1. Seizures. Probably focal with conscious impairment and secondary generalized. 2. Leukocytosis. She received antibiotics. 3. Continue Keppra. Ativan PRN. 4. Don't drive a vehicle or operate heavy machinery for 6 months. Always seizure precaution. 5. Folic acid 2 mg daily. If , 2 mg bid. 6. Plan discussed with her and her boy friend. 7. If D/C, F/U with neurology in 6-8 weeks. Subjective Date of service: 11/07/16 Principal diagnosis: Epilepsy. Interval history: No more spells. No new neurological complaints. Brain MRI with/without normal. EEG, left temporal frontal focal slowing and sharp waves. Objective - Vital Sign Vital Signs - 12hr 11/07/16 11/07/16 00:00 07:00 Temperature 98.8 F 97.0 F L Pulse Rate [ 72 Left Radial] Pulse Rate [ 58 L Left] Respiratory 18 18 Rate Blood Pressure 136/77 117/82 [Left Arm] O2 Sat by Pulse 98 Oximetry - General Apperance Constitutional: comfortable - EENT EENT: PERRL - Respiratory Respiratory: lungs clear, normal breath sounds - Cardiovascular Cardiovascular: regular rate, normal S1, normal S2 - Gastrointestinal Gastrointestinal: soft, non-tender - Integumentary Integumentary: normal - Neurologic Cranial nerve examination: PERRL, EOMI Speech examination: intact Motor examination - right side: 5/5: biceps, triceps, wrist flexion, wrist extension, manager psychology, hip flexors, knee extensors, dorsiflexion, toe extension (EHL) , plantarflexion Motor examination - left side: 5/5: biceps, triceps, wrist flexion, wrist extension, manager psychology, hip flexors, knee extensors, dorsiflexion, toe extension (EHL) , plantarflexion Detailed sensory examination: intact Reflex and gait examination: intact Reflexes: 2+: ankle, bicep, knee, tricep - Laboratory Findings CBC and BMP: 11/07/16 06:06 11/07/16 06:06 Abnormal Lab Findings: Abnormal Labs 11/06/16 11/06/16 11/07/16 04:28 04:28 06:06 WBC 12.9 H [place] % (Auto) 8.5 H Porter # 0.9 H Seg Neutrophils % 75.9 H Seg Neutrophils # 9.8 H Chloride 107.8 H Carbon Dioxide 19 L D BUN 6 L 11/07/16 06:06 WBC [place] % (Auto) Porter # Seg Neutrophils % Seg Neutrophils # Chloride 109.0 H Carbon Dioxide BUN 4 L
[2016-11-07 14:38] VITALS: BP 123/85
== END 2016-11-07 16:06 | disposition home or self-care (01) | DRG 101 ==
LOC: ED 10:46 → 3A 13:38
PROVIDERS: ADMIT Internal Medicine; ATTEND Internal Medicine
DX: G40.909 Epilepsy, unspecified, not intractable, without status epilepticus (principal); N39.0 Urinary tract infection, site not specified; D72.829 Elevated white blood cell count, unspecified; Z87.891 Personal history of nicotine dependence; Z72.89 Other problems related to lifestyle; F12.90 Cannabis use, unspecified, uncomplicated
CPT/HCPCS: 36415; 70450; 70553; 80048; 80053; 80307; 81001; 81025; 82550; 82553; 83735; 84439; 84443; 84484; 85007; 85025; 85610; 85730; 87040; 87086; 93005; 93010; 95819; 96374; 96375; A9577; J0696; J1200; J1953; J2060; J2405; J7030; J7042

== ENCOUNTER 2021-12-21 10:02 | Day surgery (SDC) | payer MEDICAID, SELFPAY ==
[~2021-12-21 10:02] MED LIST changes: -ATIVAN ONE; +SODIUM CHLORIDE 0.9% 1000 ML 1,000 ML IV SCH
--- NOTE | 2021-12-21 10:46 | Anesthesia Day of Surgery ---
Anesthesia Day of Surgery - Day of Surgery Patient Examined: Yes Patient H&P Reviewed: Yes Patient is NPO: Yes
--- NOTE | 2021-12-21 10:47 | Anesthesia Consultation ---
Anesthesia Consult and Med Hx Date of service: 12/21/21 - Airway Anesthetic Teeth Evaluation: Good ROM Head & Neck: Adequate Mental/Hyoid Distance: Adequate Mallampati Class: Class II - Pulmonary Exam CTA: Yes - Cardiac Exam Cardiac Exam: RRR - Pre-Operative Health Status ASA Pre-Surgery Classification: ASA2 Proposed Anesthetic Plan: MAC - Pulmonary Hx Asthma: No COPD: No Hx Pneumonia: No - Central Nervous System Hx Seizures: Yes - Endocrine Hx End Stage Renal Disease: No - Other Systems Hx Cancer: No
[2021-12-21] MEDS ORDERED: LIDOCAINE MPF (2%) 20 MG/1 ML VIAL 5 ML ONE (12:19)
[2021-12-21] MEDS ORDERED: propofoL 200 MG/20 ML VIAL IV ONE ×3 (12:19→12:32)
--- NOTE | 2021-12-21 12:52 | Procedure Note ---
Date of procedure: 12/21/21 Pre-op diagnosis: Hematochezia and Rectlal Pain Post-op diagnosis: other (Mild to Moderate Internal Hemorrhoids ( not significant enough for banding)/ Mild Proctitis/ Two, small rectal Polyps (possibly Hyperplastic)/ R/O Microscopic Colitis/R/O Ileitis) Procedure: Colonoscopy with Biopsy Anesthesia: NARCISO Surgeon: JUAN REY Estimated blood loss: minimal Pathology: list Specimen disposition: to lab Condition: stable Disposition: same day (Treat with Rowasa Enema, Lidocaine Gel,and Anusol HC Suppository; avoid aspirin and NSAID for 5days, otherwise resume previous medication and F/I in 1 to 2 weeks ([phone]).)
--- NOTE | 2021-12-21 12:58 | Post Anesthesia Evaluation ---
- Post Anesthesia Evaluation Patient Participated: Yes Airway Patent: Yes Stable Respiratory Function: Yes Nausea/Vomiting: No Temp > 96.8F: Yes Pain Manageable: Yes Adequeate Hydration: Yes Anesthesia Complications: No
--- NOTE | 2021-12-21 12:59 | Operative Report ---
DATE OF SURGERY: 12/21/2021 PROCEDURE PERFORMED: Colonoscopy with biopsy. INDICATIONS: A 41-year-old white female who has given childbirth about 15 months back. She has an underlying history of seizure disorder. Lately, has been having some rectal pain and some occasional hematochezia. Colonoscopy was done to assess for any significant lower GI pathology. DESCRIPTION OF PROCEDURE: Procedure was done after getting informed consent with MAC anesthesia. Initial rectal examination was unremarkable. The instrument was passed through the rectum onto the cecum, which was identified with ileocecal valve and appendiceal orifice. Visualization was fair to good. The terminal ileum was intubated, showed normal mucosa. Biopsy was done to rule out for possible ileitis. Cecum, ascending colon, transverse colon, descending colon and sigmoid showed normal mucosa. There was no evidence of any polyps, colitis or diverticular disease. Random biopsies were done to rule out for possible microscopic colitis. The rectum showed some proctitis, which may have been the cause of the patient's pain. Biopsy and photodocumentation was obtained. There were 2 small polyps, possibly hyperplastic in the rectum that were removed by cold biopsy and the rectum also showed some [id number] internal hemorrhoid. ASSESSMENT: Rectal pain secondary to proctitis, mild to moderate internal hemorrhoids, rectal polyps, possibly hyperplastic. No diverticular disease noted. Rule out microscopic colitis, rule out ileitis. PLAN: To treat the patient with Rowasa enemas, Anusol-HC suppositories, lidocaine gel. Have the patient avoid aspirin and aspirin-related products for the next few days and follow up in the office in 1-2 weeks' time. Procedure was done in the GI lab with assistance of the GI lab team, which included the GI nurse, the sound technician supervisor and with assistance of anesthesia. TID: [id number] RECEIPT: [id number] SANTIAGO/KRISTOPHER
[2021-12-21 14:29] VITALS: BP 116/81
== END 2021-12-21 13:20 | disposition home or self-care (01) ==
LOC: GIO 10:02
DX: K62.89 Other specified diseases of anus and rectum (principal); K62.5 Hemorrhage of anus and rectum; K51.80 Other ulcerative colitis without complications; K62.1 Rectal polyp; K63.89 Other specified diseases of intestine; K64.8 Other hemorrhoids; Z80.0 Family history of malignant neoplasm of digestive organs; Z79.899 Other long term (current) drug therapy; Z98.890 Other specified postprocedural states
CPT/HCPCS: 45380; 81025; 88305; J2704; J7030